=== PATIENT | female | born 1980 | race African-American/Black ===

== ENCOUNTER 2016-10-04 17:29 | Emergency (ER) | payer OTHER ==
[~2016-10-04] VITALS: Ht 170.2 cm; Wt 72.6 kg
[2016-10-04 17:32] VITALS: BP 151/93
[2016-10-04] MEDS ORDERED: TRAMADOL HCL50 M1 PO (17:47)
--- NOTE | 2016-10-04 17:48 | ED THROAT/DENTAL COMPLAINT ---
History of Present Illness General Chief Complaint: Sore Throat, Dental Pain Stated Complaint: TOOTH PAIN Source: patient Exam Limitations: no limitations Vital Signs & Intake/Output Vital Signs & Intake/Output Vital Signs Date Time Temp Pulse Resp B/P Pulse O2 O2 Flow FiO2 Ox Delivery Rate 10/04 1732 97.8 74 16 151/93 98 Room Air Room Air Allergies Coded Allergies: No Known Allergies (10/04/16) Reconcile Medications Tramadol HCl 50 MG TABLET 1 TAB PO BIDP PRN PAIN Triage Note: PT TO TRIAGE WITH RIGHT TOOTH PAIN FOR 2 DAYS. PT STATES IT RADITES INTO HER RIGHT SIDE OF NECK. PT STATES SHE WAS SUPPOSE TO HAVE A ROOT CANAL. DENIES FEVERS. Triage Nurses Notes Reviewed? yes : No Patient currently breastfeeds: No HPI: This patient is a 35-year-old female who presented to the emergency department today for evaluation of right upper tooth pain. The patient reported that she has been seen and evaluated by her dentist who recommended a root canal for her. She reported that she was not in any pain, so she did not schedule a root canal. The patient reported that yesterday she started feeling pain in her right upper jaw. She reported that it was intermittent and throbbing. However, today she reported that the pain has been constant and gets up to a, "12 out of 10." The pain is sharp and radiates up to her ear and her neck sometimes. She tried taking Advil without any relief of her symptoms. The patient denied any fevers, chills, chest pain, difficulty breathing, difficulty swallowing, or any other associated symptoms. (TONYA CHARLES PA-C) Past History Travel History Traveled to [place] past 21 day No Medical History Any Pertinent Medical History? see below for history Neurological: NONE EENT: NONE Cardiovascular: NONE Respiratory: NONE Gastrointestinal: NONE Hepatic: NONE Renal: NONE Musculoskeletal: NONE Psychiatric: NONE Endocrine: NONE Blood Disorders: NONE Cancer(s): NONE LOAD OUT PERSON/Reproductive: NONE Surgical History Surgical History: non-contributory Psychosocial History What is your primary language Danish Tobacco Use: Never used ETOH Use: denies use Illicit Drug Use: denies illicit drug use Family History Hx Contributory? No (TONYA CHARLES PA-C) Review of Systems Review of Systems Constitutional: Reports: no symptoms. EENTM: Reports: see HPI. Respiratory: Reports: no symptoms. Cardiovascular: Reports: no symptoms. GI: Reports: no symptoms. Musculoskeletal: Reports: see HPI. Skin: Reports: no symptoms. Neurological/Psychological: Reports: no symptoms. All Other Systems: Reviewed and Negative (TONYA CHARLES PA-C) Physical Exam Physical Exam Mouth/Throat: tenderness to the right upper dentition. no caries noted. no pharyngeal erythema or edema. no drooling. no mandibular or maxillary swelling. no trismus. no gingival erythema or edema. Comments: Well-developed well-nourished person in mild distress HEENT: Head normocephalic, moist mucous membranes Neck: Supple, no lymphadenopathy Back: Normal gait Respiratory: No respiratory distress. Speaking in full sentences Extremities: No edema, full range of motion Neuro: Alert and oriented x3 Psych: Mood affect normal, normal memory normal judgment. Skin: Warm and dry, no rash on exposed skin Core Measures ACS in differential dx? No Severe Sepsis Present: No Septic Shock Present: No (TONYA CHARLES PA-C) Progress Differential Diagnosis: aspirated tooth, carious tooth, epiglottitis, Ludwigs angina, meningitis, odontogenic abscess, lc-tonsillar abscess, pharyngeal for. body, stomatitis/gingivitis, strep pharyngitis, tooth fracture Plan of Care: Current Medications Sig/Radha Start time Last Medication Dose Stop Time Status Admin Tramadol HCl 50 MG ONCE ONE 10/04 1800 AC (Ultram) 10/04 1801 Departure Departure Disposition: HOME OR SELF CARE Condition: Stable Clinical Impression Primary Impression: Pain, dental Referrals: [facility] Additional Instructions: TAKE MEDICATION FOR PAIN PRESCRIBED. PLEASE CALL YOUR DENTIST FIRST THING THURSDAY MORNING TO SCHEDULE AN APPOINTMENT. RETURN TO THE EMERGENCY DEPARTMENT FOR ANY WORSENING SYMPTOMS, FEVERS, OR FOR ANY OTHER CONCERNS. Departure Forms: Customer Survey General Discharge Information Prescriptions: Current Visit Scripts Tramadol HCl 1 TAB PO BIDP PRN PAIN #10 TAB (TONYA CHARLES PA-C) PA/BLANKET WASHER Co-Sign Statement Statement: ED Attending supervision documentation- [] I saw and evaluated the patient. I have also reviewed all the pertinent lab results and diagnostic results. I agree with the findings and the plan of care as documented in the PA's/BLANKET WASHER's documentation. [X] I have reviewed the ED Record and agree with the PA's/BLANKET WASHER's documentation. [] Additions or exceptions (if any) to the PAs/BLANKET WASHER's note and plan are summarized below: [] (HAMZAH KILPATRICK,TAMRA)
== END 2016-10-04 18:00 ==
LOC: ERH 17:29
DX: K08.89 Other specified disorders of teeth and supporting structures (principal)